=== PATIENT | male | born 1950 | race Caucasian/White ===

== ENCOUNTER 2019-04-16 05:23 | Inpatient (IN) ==
[2019-04-14 11:20] LABS: Basophils # 0.1 10*3/uL (0.0-0.2); Basophils % 1.1 % (0.0-0.8); Eosinophils # 0.3 10*3/uL (0.0-0.87); Eosinophils % 3.5 % (0.00-10.9); Hematocrit 46.7 VOL% (42.0-52.0); Immature Granulocytes % 0.5 %; Immature Granulocytes Absolute 0.04 #; Lymphocytes # 1.9 10*3/uL (1.4-4.0); Lymphocytes % 23.4 % (21.2-54.2); Mean Corpuscular HGB Conc 32.1 GM/DL (32-36); Mean Corpuscular Volume 88.1 FL (87-102); Mean Platelet Volume 11.2 FL (9.6-12.0); Monocytes % 8.3 % (1.7-12.7); Neutrophils % 63.2 % (38.7-73.9); Platelet Count 397 T/CUMM (130-400); Red Cell Distribution Width 14.3 % (9.3-17.3); White Blood Count 8.2 T/CUMM (4-12)
[2019-04-14 11:25] LABS: Apearance,Urine CLEAR (Clear); Bilirubin,Urine Negative (Negative); Blood, Urine Negative (Negative); Glucose,Urine (UA) >=500 mg/dL (Negative); Hyaline Casts,Urine 1 /LPF (0-3); Ketones,Urine Negative (Negative); Mucus,Urine Occasional /LPF (Occasional); Nitrite,Urine Negative (Negative); Protein,Urine Negative; RBC,Urine 1 /HPF (0-4); Squamous Epithelial Cell,Urine Occasional /HPF (0-10); Urine Color Yellow (Yellow); Urine Specific Gravity 1.023 (1.001-1.035); Urine Urobilinogen < 2.0 EU/DL (0.2-1.0); WBC,Urine 1 /HPF (0-6)
[2019-04-14 11:32] LABS: INR 0.9; Partial Thromboplastin Time 24.2 SECS (0-40)
[2019-04-14 11:36] LABS: Calcium 8.9 MG/DL (8.5-10.1); Osmolality,Calculated 285.3 MOS/KG (273-304)
[~2019-04-16 05:23] MED LIST: BUPIVACAINE LIPOSOMAL 20 ML/266 MG VIAL INFILTRAT ONE; CEFUROXIME INJ 1,500 MG in SYRINGE 1 EACH IV ONE; SODIUM CHLORIDE 0.9% 1,000 ML IV PRN
[2019-04-16] MEDS ORDERED: DEXMEDETOMIDINE 200 MCG/2 ML VIAL IV ONE ×2 (06:05→06:06)
[2019-04-16] MEDS ORDERED: PHENYLEPHRINE DRIP 20 MG/250 ML PREMIX IV ONE (06:05)
[2019-04-16] MEDS ORDERED: HEPARIN/NACL 0.9% 2 UNITS/ML 500 ML IV ONE (06:05)
[2019-04-16] MEDS ORDERED: SODIUM CHLORIDE 0.9% 100 ML IV ONE (06:06)
[2019-04-16] MEDS ORDERED: VECURONIUM 10 MG VIAL IV ONE (06:06)
[2019-04-16] MEDS ORDERED: SODIUM CHLORIDE 0.9% 1,000 ML IV ONE (06:06)
[2019-04-16] MEDS ORDERED: LACTATED RINGERS 1,000 ML IV ONE ×2 (06:06→14:45)
[2019-04-16] MEDS ORDERED: NITROGLYCERIN DRIP 50 MG/250 ML BOTTLE IV ONE (06:06)
[2019-04-16] MEDS ORDERED: CEFUROXIME 1,500 MG VIAL ONE ×2 (06:33→06:45)
[2019-04-16] MEDS ORDERED: TISSUE ADHESIVE 1 EACH APPLICATOR TOP ONE (06:40)
[2019-04-16] MEDS ORDERED: TALC INTRAPLEURAL POWDER 3 GM VIAL INTRAPLEUR ONE (06:40)
[2019-04-16] MEDS ORDERED: BUPIVACAINE LIPOSOMAL 20 ML/266 MG VIAL ONE (06:40)
[2019-04-16] MEDS ORDERED: HEPARIN 5,000 UNIT/1 ML VIAL ONE (06:40)
[2019-04-16] MEDS ORDERED: LACTATED RINGERS 1,000 ML IV SCH (07:00)
[2019-04-16 08:40] LABS: ABG Base Excess 0.9 MMOL/L (-2.5-2.5); ABG HCO3 25.3 MMOL/L (20-26); ABG PCO2 37.4 MM HG (35-48); ABG PH 7.432 (7.35-7.45); ABG TCO2 21.7 MMOL/L (23-27); Glucose Heart Surgery 171 MG/DL (74-106); Hematocrit Heart Surgery 40.5 PERCENT (42-52); Hemoglobin Heart Surgery 13.2 G/DL (14.0-18.0); Ionized Calcium Arterial 1.13 MMOL/L (1.21-1.46); PCO2 Patient Temp Arterial 35.7 MMHG; PH Patient Temp Arterial 7.447; Patient Temperature 36 CELCIUS; Potassium Heart/CVR 3.8 MMOL/L (3.5-5.1); Sodium Heart/CVR 140 MMOL/L (135-145)
[2019-04-16] MEDS ORDERED: ONDANSETRON 4 MG/2 ML VIAL ONE (13:11)
[2019-04-16] MEDS ORDERED: GLYCOPYRROLATE 0.4 MG/2 ML VIAL ONE ×2 (13:11→13:12)
[2019-04-16] MEDS ORDERED: MIDAZOLAM 2 MG/2 ML VIAL ONE (13:11)
[2019-04-16] MEDS ORDERED: SEVOFLURANE 1 UNIT/15 MINUTE INH ONE (13:11)
[2019-04-16] MEDS ORDERED: fentaNYL 100 MCG/2 ML VIAL ONE (13:11)
[2019-04-16] MEDS ORDERED: DEXAMETHASONE 4 MG/1 ML VIAL ONE ×2 (13:12)
[2019-04-16] MEDS ORDERED: NEOSTIGMINE 10 MG/10 ML VIAL ONE (13:12)
[2019-04-16 13:13] LABS: Apearance,Urine CLEAR (Clear); Bacteria,Urine Occasional /HPF (Few); Bilirubin,Urine Negative (Negative); Blood, Urine Negative (Negative); Glucose,Urine (UA) >=500 mg/dL (Negative); Hyaline Casts,Urine 1 /LPF (0-3); Ketones,Urine Negative (Negative); Mucus,Urine Occasional /LPF (Occasional); Nitrite,Urine Negative (Negative); Protein,Urine Negative; RBC,Urine 4 /HPF (0-4); Urine Color Yellow (Yellow); Urine Specific Gravity 1.023 (1.001-1.035); Urine Urobilinogen < 2.0 EU/DL (0.2-1.0); WBC,Urine 1 /HPF (0-6)
[2019-04-16] MEDS ORDERED: ONDANSETRON 4 MG/2 ML VIAL IV PRN (13:47)
[2019-04-16 14:15] LABS: Basophils # 0.1 10*3/uL (0.0-0.2); Basophils % 0.3 % (0.0-0.8); Hematocrit 41.1 VOL% (42.0-52.0); Hemoglobin 12.9 GM/DL (14.0-18.0); Immature Granulocytes % 0.8 %; Immature Granulocytes Absolute 0.21 #; Lymphocytes # 0.8 10*3/uL (1.4-4.0); Lymphocytes % 3.2 % (21.2-54.2); Mean Corpuscular HGB Conc 31.4 GM/DL (32-36); Mean Corpuscular Volume 88.6 FL (87-102); Mean Platelet Volume 10.7 FL (9.6-12.0); Monocytes % 5.7 % (1.7-12.7); Platelet Count 405 T/CUMM (130-400); Red Blood Count 4.64 MC/CUMM (3.8-5.5); Red Cell Distribution Width 13.9 % (9.3-17.3); White Blood Count 24.9 T/CUMM (4-12)
[2019-04-16] MEDS: KETOROLAC 15 MG/1 ML VIAL IV SCH ×2 (14:18→20:57)
[2019-04-16] MEDS: GABAPENTIN 100 MG CAPSULE PO SCH ×2 (14:18→21:11)
[2019-04-16 14:41] LABS: Lymphocytes 2 % (20-55); Segmented Neutrophils 92 % (50-85)
[2019-04-16 14:44] LABS: Platelet Estimate Increased; Total Cells Counted 100
[2019-04-16] MEDS: POTASSIUM CHLORIDE INJ 10 MEQ in SODIUM CHLORIDE 0.45% 1,000 ML IV SCH (14:54)
[2019-04-16] MEDS: ALBUTEROL/IPRATROPIUM 3 ML NEB RESP TX SCH ×2 (19:15→22:40)
[2019-04-16] MEDS: ACETAMINOPHEN INJ 1,000 MG in PREMIX 1 EACH IV SCH (19:58)
[2019-04-16] MEDS: CEFUROXIME INJ 1,500 MG in SYRINGE 1 EACH IV SCH (21:08)
[2019-04-16] MEDS: METOPROLOL SUCCINATE XL 50 MG TABLET PO SCH (21:11)
[2019-04-16] MEDS: traMADol 50 MG TABLET PO PRN (22:05)
[2019-04-17] MEDS: ACETAMINOPHEN INJ 1,000 MG in PREMIX 1 EACH IV SCH (01:25)
[2019-04-17] MEDS: KETOROLAC 15 MG/1 ML VIAL IV SCH ×4 (01:25→22:32)
[2019-04-17] MEDS: POTASSIUM CHLORIDE INJ 10 MEQ in SODIUM CHLORIDE 0.45% 1,000 ML IV SCH ×2 (01:29→10:31)
[2019-04-17] MEDS: ALBUTEROL/IPRATROPIUM 3 ML NEB RESP TX SCH ×6 (02:46→22:51)
[2019-04-17 04:58] LABS: Basophils % 0.2 % (0.0-0.8); Hematocrit 33.9 VOL% (42.0-52.0); Hemoglobin 10.7 GM/DL (14.0-18.0); Immature Granulocytes % 0.5 %; Immature Granulocytes Absolute 0.09 #; Lymphocytes # 1.6 10*3/uL (1.4-4.0); Lymphocytes % 9.7 % (21.2-54.2); Mean Corpuscular HGB Conc 31.6 GM/DL (32-36); Mean Corpuscular Volume 90.6 FL (87-102); Mean Platelet Volume 10.6 FL (9.6-12.0); Monocytes % 10.4 % (1.7-12.7); Neutrophils % 79.2 % (38.7-73.9); Platelet Count 304 T/CUMM (130-400); Red Blood Count 3.74 MC/CUMM (3.8-5.5); Red Cell Distribution Width 14.1 % (9.3-17.3); White Blood Count 16.4 T/CUMM (4-12)
[2019-04-17 05:10] LABS: Calcium 7.4 MG/DL (8.5-10.1); Osmolality,Calculated 288.3 MOS/KG (273-304)
[2019-04-17] MEDS ORDERED: traMADol 50 MG TABLET PO PRN (06:00)
[2019-04-17] MEDS: ENOXAPARIN 40 MG/0.4 ML SYRINGE SUBCUT SCH (08:02)
[2019-04-17] MEDS: GABAPENTIN 100 MG CAPSULE PO SCH ×3 (08:02→22:30)
[2019-04-17] MEDS: METOPROLOL SUCCINATE XL 50 MG TABLET PO SCH ×2 (08:03→22:30)
[2019-04-17] MEDS: ACETAMINOPHEN 500 MG TABLET PO SCH ×3 (08:03→22:30)
[2019-04-17] MEDS: PANTOPRAZOLE 40 MG TABLET PO SCH (08:11)
[2019-04-17] MEDS: CELECOXIB 200 MG CAPSULE PO SCH ×2 (08:11→22:30)
[2019-04-17] MEDS: CEFUROXIME INJ 1,500 MG in SYRINGE 1 EACH IV SCH (09:08)
[2019-04-17] MEDS ORDERED: DEXTROSE 50% 25 GM/50 ML VIAL IV PRN (10:58)
[2019-04-17] MEDS ORDERED: GLUCAGON 1 MG VIAL IM PRN (10:58)
[2019-04-17] MEDS: INSULIN LISPRO 100 UNIT/ML SUBCUT SCH ×3 (11:52→22:31)
[2019-04-17] MEDS: hydrALAZINE 25 MG TABLET PO SCH ×2 (13:02→17:18)
[2019-04-17] MEDS ORDERED: METOPROLOL SUCCINATE XL 50 MG TABLET PO SCH (21:00)
[2019-04-17] MEDS: metFORMIN 500 MG TABLET PO SCH (22:29)
[2019-04-17] MEDS: TEMAZEPAM 15 MG CAPSULE PO SCH (22:31)
[2019-04-18] MEDS: hydrALAZINE 25 MG TABLET PO SCH ×5 (01:12→21:33)
[2019-04-18] MEDS: amLODIPine 10 MG TABLET PO SCH ×3 (01:12→21:34)
[2019-04-18] MEDS: ACETAMINOPHEN 500 MG TABLET PO SCH ×4 (02:46→21:32)
[2019-04-18] MEDS: KETOROLAC 15 MG/1 ML VIAL IV SCH ×2 (02:46→08:41)
[2019-04-18] MEDS: ALBUTEROL/IPRATROPIUM 3 ML NEB RESP TX SCH ×6 (03:33→23:05)
[2019-04-18 04:41] LABS: Basophils # 0.1 10*3/uL (0.0-0.2); Basophils % 0.3 % (0.0-0.8); Eosinophils # 0.1 10*3/uL (0.0-0.87); Eosinophils % 0.5 % (0.00-10.9); Hematocrit 34.7 VOL% (42.0-52.0); Hemoglobin 10.9 GM/DL (14.0-18.0); Immature Granulocytes % 0.5 %; Immature Granulocytes Absolute 0.07 #; Lymphocytes # 2.1 10*3/uL (1.4-4.0); Lymphocytes % 13.8 % (21.2-54.2); Mean Corpuscular HGB Conc 31.4 GM/DL (32-36); Mean Corpuscular Volume 89.9 FL (87-102); Mean Platelet Volume 11.6 FL (9.6-12.0); Monocytes % 8.7 % (1.7-12.7); Neutrophils % 76.2 % (38.7-73.9); Platelet Count 307 T/CUMM (130-400); Red Blood Count 3.86 MC/CUMM (3.8-5.5); Red Cell Distribution Width 14.3 % (9.3-17.3); White Blood Count 14.9 T/CUMM (4-12)
[2019-04-18 05:05] LABS: Osmolality,Calculated 283.4 MOS/KG (273-304)
[2019-04-18] MEDS: INSULIN LISPRO 100 UNIT/ML SUBCUT SCH ×4 (07:54→22:50)
[2019-04-18] MEDS: ENOXAPARIN 40 MG/0.4 ML SYRINGE SUBCUT SCH (08:33)
[2019-04-18] MEDS: METOPROLOL SUCCINATE XL 50 MG TABLET PO SCH ×2 (08:34→21:32)
[2019-04-18] MEDS: GABAPENTIN 100 MG CAPSULE PO SCH ×3 (08:34→21:33)
[2019-04-18] MEDS: ASPIRIN 325 MG TABLET PO SCH (08:34)
[2019-04-18] MEDS: LOSARTAN 25 MG TABLET PO SCH (08:34)
[2019-04-18] MEDS: FENOFIBRATE 160 MG TABLET PO SCH (08:34)
[2019-04-18] MEDS: PANTOPRAZOLE 40 MG TABLET PO SCH (08:35)
[2019-04-18] MEDS: CELECOXIB 200 MG CAPSULE PO SCH ×2 (08:35→21:32)
[2019-04-18] MEDS: FLUTICASONE 50 MCG NASAL SPRAY 16 GM BOTTLE BOTH NARES SCH (08:35)
[2019-04-18] MEDS: ATORVASTATIN 20 MG TABLET PO SCH (08:35)
[2019-04-18] MEDS: MAGNESIUM OXIDE 400 MG TABLET PO SCH (08:36)
[2019-04-18] MEDS: hydroCHLOROthiazide 12.5 MG CAPSULE PO SCH (08:39)
[2019-04-18] MEDS ORDERED: NON-FORMULARY MEDICATION (Canagliflozin [Invokana] 300 MG) PO SCH (09:00)
[2019-04-18] MEDS ORDERED: NON-FORMULARY MEDICATION (Liraglutide [Victoza 3-Pak] 1.8 MG) SUBCUT SCH (09:00)
[2019-04-18] MEDS: metFORMIN 500 MG TABLET PO SCH (21:32)
[2019-04-18] MEDS: TEMAZEPAM 15 MG CAPSULE PO SCH (21:33)
[2019-04-18] MEDS: traMADol 50 MG TABLET PO PRN (21:34)
[2019-04-19] MEDS: ACETAMINOPHEN 500 MG TABLET PO SCH ×4 (01:10→20:29)
[2019-04-19] MEDS: ALBUTEROL/IPRATROPIUM 3 ML NEB RESP TX SCH ×6 (03:00→23:50)
[2019-04-19 03:48] LABS: Basophils # 0.1 10*3/uL (0.0-0.2); Basophils % 0.6 % (0.0-0.8); Eosinophils # 0.3 10*3/uL (0.0-0.87); Eosinophils % 2.7 % (0.00-10.9); Hematocrit 32.8 VOL% (42.0-52.0); Hemoglobin 10.3 GM/DL (14.0-18.0); Immature Granulocytes % 0.6 %; Immature Granulocytes Absolute 0.07 #; Lymphocytes # 1.6 10*3/uL (1.4-4.0); Lymphocytes % 13.4 % (21.2-54.2); Mean Corpuscular HGB Conc 31.4 GM/DL (32-36); Mean Corpuscular Volume 89.9 FL (87-102); Mean Platelet Volume 11.2 FL (9.6-12.0); Monocytes % 9.7 % (1.7-12.7); Platelet Count 278 T/CUMM (130-400); Red Blood Count 3.65 MC/CUMM (3.8-5.5); Red Cell Distribution Width 14.3 % (9.3-17.3); White Blood Count 11.9 T/CUMM (4-12)
[2019-04-19 04:13] LABS: Calcium 8.2 MG/DL (8.5-10.1); Osmolality,Calculated 284.3 MOS/KG (273-304)
[2019-04-19] MEDS: INSULIN LISPRO 100 UNIT/ML SUBCUT SCH ×4 (08:20→20:29)
[2019-04-19] MEDS: hydrALAZINE 25 MG TABLET PO SCH ×4 (08:43→20:29)
[2019-04-19] MEDS: ASPIRIN 325 MG TABLET PO SCH (08:43)
[2019-04-19] MEDS: ENOXAPARIN 40 MG/0.4 ML SYRINGE SUBCUT SCH (08:43)
[2019-04-19] MEDS: hydroCHLOROthiazide 12.5 MG CAPSULE PO SCH (08:44)
[2019-04-19] MEDS: METOPROLOL SUCCINATE XL 50 MG TABLET PO SCH ×2 (08:44→20:34)
[2019-04-19] MEDS: ATORVASTATIN 20 MG TABLET PO SCH (08:44)
[2019-04-19] MEDS: FLUTICASONE 50 MCG NASAL SPRAY 16 GM BOTTLE BOTH NARES SCH (08:44)
[2019-04-19] MEDS: amLODIPine 10 MG TABLET PO SCH ×2 (08:44→20:29)
[2019-04-19] MEDS: GABAPENTIN 100 MG CAPSULE PO SCH ×3 (08:44→20:29)
[2019-04-19] MEDS: MAGNESIUM OXIDE 400 MG TABLET PO SCH (08:44)
[2019-04-19] MEDS: PANTOPRAZOLE 40 MG TABLET PO SCH (08:44)
[2019-04-19] MEDS: FENOFIBRATE 160 MG TABLET PO SCH (08:44)
[2019-04-19] MEDS: CELECOXIB 200 MG CAPSULE PO SCH ×2 (08:44→20:30)
[2019-04-19] MEDS: LOSARTAN 25 MG TABLET PO SCH (08:44)
[2019-04-19] MEDS ORDERED: MORPHINE 4 MG/1 ML VIAL ONE (09:39)
[2019-04-19] MEDS ORDERED: MIDAZOLAM 2 MG/2 ML VIAL ONE (09:39)
[2019-04-19] MEDS ORDERED: MIDAZOLAM 10 MG/2 ML VIAL ONE (09:41)
[2019-04-19] MEDS ORDERED: MIDAZOLAM 2 MG/2 ML VIAL IV ONE (09:53)
[2019-04-19] MEDS ORDERED: MORPHINE 4 MG/1 ML VIAL IV ONE (09:54)
[2019-04-19] MEDS ORDERED: LIDOCAINE 4% TOP SOLN 50 ML BOTTLE RESP TX ONE (10:21)
[2019-04-19] MEDS ORDERED: LIDOCAINE 2% VISCOUS 100 ML BOTTLE SWISH/SPIT ONE (11:43)
[2019-04-19] MEDS ORDERED: GLUCAGON 1 MG VIAL IM PRN (15:27)
[2019-04-19] MEDS ORDERED: DEXTROSE 50% 25 GM/50 ML VIAL IV PRN (15:27)
[2019-04-19] MEDS: metFORMIN 500 MG TABLET PO SCH (20:29)
[2019-04-19] MEDS: TEMAZEPAM 15 MG CAPSULE PO SCH (20:34)
[2019-04-19] MEDS ORDERED: METOPROLOL TARTRATE 5 MG/5 ML VIAL IV ONE (21:43)
[2019-04-20] MEDS: ACETAMINOPHEN 500 MG TABLET PO SCH ×4 (02:08→20:16)
[2019-04-20] MEDS: ALBUTEROL/IPRATROPIUM 3 ML NEB RESP TX SCH ×6 (03:50→23:19)
[2019-04-20 04:42] LABS: Basophils # 0.1 10*3/uL (0.0-0.2); Basophils % 0.5 % (0.0-0.8); Eosinophils # 0.6 10*3/uL (0.0-0.87); Eosinophils % 5.2 % (0.00-10.9); Hematocrit 32.2 VOL% (42.0-52.0); Hemoglobin 10.4 GM/DL (14.0-18.0); Immature Granulocytes % 0.3 %; Immature Granulocytes Absolute 0.04 #; Lymphocytes # 1.3 10*3/uL (1.4-4.0); Lymphocytes % 11.2 % (21.2-54.2); Mean Corpuscular HGB Conc 32.3 GM/DL (32-36); Mean Corpuscular Volume 89.4 FL (87-102); Mean Platelet Volume 11.5 FL (9.6-12.0); Neutrophils % 75.8 % (38.7-73.9); Platelet Count 321 T/CUMM (130-400); Red Cell Distribution Width 14.1 % (9.3-17.3); White Blood Count 11.8 T/CUMM (4-12)
[2019-04-20 05:02] LABS: Calcium 8.2 MG/DL (8.5-10.1); Osmolality,Calculated 281.4 MOS/KG (273-304)
[2019-04-20] MEDS: ENOXAPARIN 40 MG/0.4 ML SYRINGE SUBCUT SCH (09:20)
[2019-04-20] MEDS: hydrALAZINE 25 MG TABLET PO SCH ×4 (09:21→21:23)
[2019-04-20] MEDS: ASPIRIN 325 MG TABLET PO SCH (09:21)
[2019-04-20] MEDS: hydroCHLOROthiazide 12.5 MG CAPSULE PO SCH (09:21)
[2019-04-20] MEDS: MAGNESIUM OXIDE 400 MG TABLET PO SCH (09:21)
[2019-04-20] MEDS: CELECOXIB 200 MG CAPSULE PO SCH ×2 (09:21→21:22)
[2019-04-20] MEDS: ATORVASTATIN 20 MG TABLET PO SCH (09:22)
[2019-04-20] MEDS: FENOFIBRATE 160 MG TABLET PO SCH (09:22)
[2019-04-20] MEDS: amLODIPine 10 MG TABLET PO SCH ×2 (09:22→21:22)
[2019-04-20] MEDS: GABAPENTIN 100 MG CAPSULE PO SCH ×3 (09:23→21:21)
[2019-04-20] MEDS: LOSARTAN 25 MG TABLET PO SCH (09:23)
[2019-04-20] MEDS: PANTOPRAZOLE 40 MG TABLET PO SCH (09:23)
[2019-04-20] MEDS: INSULIN LISPRO 100 UNIT/ML SUBCUT SCH ×4 (09:24→21:21)
[2019-04-20] MEDS: METOPROLOL SUCCINATE XL 50 MG TABLET PO SCH ×2 (09:24→21:22)
[2019-04-20] MEDS: FLUTICASONE 50 MCG NASAL SPRAY 16 GM BOTTLE BOTH NARES SCH (13:12)
[2019-04-20] MEDS: metFORMIN 500 MG TABLET PO SCH (21:22)
[2019-04-20] MEDS: TEMAZEPAM 15 MG CAPSULE PO SCH (21:30)
[2019-04-21] MEDS ORDERED: METOPROLOL TARTRATE 5 MG/5 ML VIAL IV ONE (00:44)
[2019-04-21] MEDS: ACETAMINOPHEN 500 MG TABLET PO SCH ×4 (01:57→21:25)
[2019-04-21] MEDS: ALBUTEROL/IPRATROPIUM 3 ML NEB RESP TX SCH ×6 (03:08→23:06)
[2019-04-21 05:11] LABS: Basophils # 0.1 10*3/uL (0.0-0.2); Basophils % 0.5 % (0.0-0.8); Eosinophils # 0.8 10*3/uL (0.0-0.87); Eosinophils % 7.1 % (0.00-10.9); Hematocrit 32.4 VOL% (42.0-52.0); Hemoglobin 10.3 GM/DL (14.0-18.0); Immature Granulocytes % 0.7 %; Immature Granulocytes Absolute 0.08 #; Lymphocytes # 1.6 10*3/uL (1.4-4.0); Lymphocytes % 13.5 % (21.2-54.2); Mean Corpuscular HGB Conc 31.8 GM/DL (32-36); Mean Corpuscular Volume 88.3 FL (87-102); Mean Platelet Volume 11.6 FL (9.6-12.0); Monocytes % 8.1 % (1.7-12.7); Neutrophils % 70.1 % (38.7-73.9); Platelet Count 383 T/CUMM (130-400); Red Blood Count 3.67 MC/CUMM (3.8-5.5); Red Cell Distribution Width 13.9 % (9.3-17.3); White Blood Count 11.7 T/CUMM (4-12)
[2019-04-21 05:51] LABS: Calcium 8.6 MG/DL (8.5-10.1)
[2019-04-21] MEDS: INSULIN LISPRO 100 UNIT/ML SUBCUT SCH ×4 (08:40→21:24)
[2019-04-21] MEDS: amLODIPine 10 MG TABLET PO SCH ×2 (09:33→21:29)
[2019-04-21] MEDS: ENOXAPARIN 40 MG/0.4 ML SYRINGE SUBCUT SCH (09:33)
[2019-04-21] MEDS: ASPIRIN 325 MG TABLET PO SCH (09:34)
[2019-04-21] MEDS: CELECOXIB 200 MG CAPSULE PO SCH ×2 (09:34→21:26)
[2019-04-21] MEDS: METOPROLOL SUCCINATE XL 50 MG TABLET PO SCH ×2 (09:34→21:29)
[2019-04-21] MEDS: LOSARTAN 25 MG TABLET PO SCH (09:34)
[2019-04-21] MEDS: GABAPENTIN 100 MG CAPSULE PO SCH ×3 (09:35→21:29)
[2019-04-21] MEDS: hydrALAZINE 25 MG TABLET PO SCH ×4 (09:35→21:28)
[2019-04-21] MEDS: hydroCHLOROthiazide 12.5 MG CAPSULE PO SCH (09:35)
[2019-04-21] MEDS: MAGNESIUM OXIDE 400 MG TABLET PO SCH (09:35)
[2019-04-21] MEDS: ATORVASTATIN 20 MG TABLET PO SCH (09:35)
[2019-04-21] MEDS: PANTOPRAZOLE 40 MG TABLET PO SCH (09:35)
[2019-04-21] MEDS: FENOFIBRATE 160 MG TABLET PO SCH (09:35)
[2019-04-21] MEDS: FLUTICASONE 50 MCG NASAL SPRAY 16 GM BOTTLE BOTH NARES SCH (09:36)
[2019-04-21] MEDS ORDERED: FUROSEMIDE 40 MG/4 ML VIAL IV ONE (09:37)
[2019-04-21] MEDS ORDERED: LACTULOSE 20 GM/30 ML UDCUP PO PRN (10:14)
[2019-04-21] MEDS: DOCUSATE SODIUM 100 MG CAPSULE PO SCH ×2 (10:41→12:22)
[2019-04-21] MEDS ORDERED: AMIODARONE 150 MG/3 ML VIAL ONE (12:37)
[2019-04-21] MEDS ORDERED: AMIODARONE 450 MG/9 ML VIAL IV ONE (12:37)
[2019-04-21] MEDS ORDERED: AMIODARONE INJ 150 MG in DEXTROSE 5% 100 ML IV ONE (13:00)
[2019-04-21] MEDS ORDERED: AMIODARONE INJ 450 MG in DEXTROSE 5% 241 ML IV SCH (13:10)
[2019-04-21] MEDS: metFORMIN 500 MG TABLET PO SCH (21:25)
[2019-04-21] MEDS: TEMAZEPAM 15 MG CAPSULE PO SCH (21:26)
[2019-04-21] MEDS: AMIODARONE INJ 450 MG in DEXTROSE 5% 241 ML IV SCH (21:27)
[2019-04-22] MEDS: ACETAMINOPHEN 500 MG TABLET PO SCH ×4 (00:48→20:55)
[2019-04-22] MEDS: ALBUTEROL/IPRATROPIUM 3 ML NEB RESP TX SCH ×6 (02:00→23:09)
[2019-04-22 04:51] LABS: Basophils # 0.1 10*3/uL (0.0-0.2); Basophils % 0.9 % (0.0-0.8); Eosinophils # 0.9 10*3/uL (0.0-0.87); Eosinophils % 7.5 % (0.00-10.9); Hematocrit 31.7 VOL% (42.0-52.0); Hemoglobin 10.2 GM/DL (14.0-18.0); Immature Granulocytes % 1.5 %; Immature Granulocytes Absolute 0.17 #; Lymphocytes # 2.1 10*3/uL (1.4-4.0); Lymphocytes % 18.5 % (21.2-54.2); Mean Corpuscular HGB Conc 32.2 GM/DL (32-36); Mean Corpuscular Volume 88.3 FL (87-102); Mean Platelet Volume 11.4 FL (9.6-12.0); Neutrophils % 62.6 % (38.7-73.9); Platelet Count 428 T/CUMM (130-400); Red Blood Count 3.59 MC/CUMM (3.8-5.5); White Blood Count 11.4 T/CUMM (4-12)
[2019-04-22 05:22] LABS: Calcium 8.6 MG/DL (8.5-10.1); Osmolality,Calculated 285.3 MOS/KG (273-304)
[2019-04-22] MEDS: INSULIN LISPRO 100 UNIT/ML SUBCUT SCH ×4 (09:07→20:56)
[2019-04-22] MEDS: LOSARTAN 25 MG TABLET PO SCH (09:09)
[2019-04-22] MEDS: MAGNESIUM OXIDE 400 MG TABLET PO SCH (09:09)
[2019-04-22] MEDS: GABAPENTIN 100 MG CAPSULE PO SCH ×3 (09:09→20:55)
[2019-04-22] MEDS: FENOFIBRATE 160 MG TABLET PO SCH (09:09)
[2019-04-22] MEDS: CELECOXIB 200 MG CAPSULE PO SCH ×2 (09:09→20:54)
[2019-04-22] MEDS: ATORVASTATIN 20 MG TABLET PO SCH (09:09)
[2019-04-22] MEDS: METOPROLOL SUCCINATE XL 50 MG TABLET PO SCH ×2 (09:09→20:56)
[2019-04-22] MEDS: PANTOPRAZOLE 40 MG TABLET PO SCH (09:09)
[2019-04-22] MEDS: DOCUSATE SODIUM 100 MG CAPSULE PO SCH (09:09)
[2019-04-22] MEDS: ASPIRIN 325 MG TABLET PO SCH (09:09)
[2019-04-22] MEDS: hydrALAZINE 25 MG TABLET PO SCH ×4 (09:09→20:55)
[2019-04-22] MEDS: hydroCHLOROthiazide 12.5 MG CAPSULE PO SCH (09:09)
[2019-04-22] MEDS: amLODIPine 10 MG TABLET PO SCH ×2 (09:10→20:55)
[2019-04-22] MEDS: ENOXAPARIN 40 MG/0.4 ML SYRINGE SUBCUT SCH (09:10)
[2019-04-22] MEDS: FLUTICASONE 50 MCG NASAL SPRAY 16 GM BOTTLE BOTH NARES SCH (09:13)
[2019-04-22] MEDS: AMIODARONE INJ 450 MG in DEXTROSE 5% 241 ML IV SCH (10:49)
[2019-04-22] MEDS: AMIODARONE 200 MG TABLET PO SCH ×2 (12:27→20:55)
[2019-04-22] MEDS: metFORMIN 500 MG TABLET PO SCH (20:55)
[2019-04-22] MEDS: TEMAZEPAM 15 MG CAPSULE PO SCH (20:55)
[2019-04-23] MEDS: AMIODARONE INJ 450 MG in DEXTROSE 5% 241 ML IV SCH (01:44)
[2019-04-23] MEDS: ACETAMINOPHEN 500 MG TABLET PO SCH ×2 (01:48→10:18)
[2019-04-23] MEDS: ALBUTEROL/IPRATROPIUM 3 ML NEB RESP TX SCH ×2 (02:33→07:10)
[2019-04-23 05:23] LABS: Basophils # 0.1 10*3/uL (0.0-0.2); Basophils % 0.8 % (0.0-0.8); Eosinophils # 0.9 10*3/uL (0.0-0.87); Eosinophils % 6.8 % (0.00-10.9); Hematocrit 31.7 VOL% (42.0-52.0); Hemoglobin 10.1 GM/DL (14.0-18.0); Immature Granulocytes % 1.6 %; Immature Granulocytes Absolute 0.21 #; Lymphocytes # 1.9 10*3/uL (1.4-4.0); Lymphocytes % 14.3 % (21.2-54.2); Mean Corpuscular HGB Conc 31.9 GM/DL (32-36); Mean Corpuscular Volume 88.3 FL (87-102); Mean Platelet Volume 11.3 FL (9.6-12.0); Monocytes % 8.5 % (1.7-12.7); Platelet Count 490 T/CUMM (130-400); Red Blood Count 3.59 MC/CUMM (3.8-5.5)
[2019-04-23 05:44] LABS: Calcium 8.8 MG/DL (8.5-10.1); Osmolality,Calculated 287.1 MOS/KG (273-304)
[2019-04-23] MEDS: INSULIN LISPRO 100 UNIT/ML SUBCUT SCH (10:14)
[2019-04-23] MEDS: hydroCHLOROthiazide 12.5 MG CAPSULE PO SCH (10:17)
[2019-04-23] MEDS: FENOFIBRATE 160 MG TABLET PO SCH (10:18)
[2019-04-23] MEDS: ASPIRIN 325 MG TABLET PO SCH (10:18)
[2019-04-23] MEDS: amLODIPine 10 MG TABLET PO SCH (10:18)
[2019-04-23] MEDS: PANTOPRAZOLE 40 MG TABLET PO SCH (10:18)
[2019-04-23] MEDS: GABAPENTIN 100 MG CAPSULE PO SCH (10:18)
[2019-04-23] MEDS: hydrALAZINE 25 MG TABLET PO SCH (10:18)
[2019-04-23] MEDS: DOCUSATE SODIUM 100 MG CAPSULE PO SCH (10:18)
[2019-04-23] MEDS: ATORVASTATIN 20 MG TABLET PO SCH (10:18)
[2019-04-23] MEDS: LOSARTAN 25 MG TABLET PO SCH (10:18)
[2019-04-23] MEDS: MAGNESIUM OXIDE 400 MG TABLET PO SCH (10:19)
[2019-04-23] MEDS: ENOXAPARIN 40 MG/0.4 ML SYRINGE SUBCUT SCH (10:19)
[2019-04-23] MEDS: AMIODARONE 200 MG TABLET PO SCH (10:19)
[2019-04-23] MEDS: METOPROLOL SUCCINATE XL 50 MG TABLET PO SCH (10:19)
[2019-04-23] MEDS: CELECOXIB 200 MG CAPSULE PO SCH (10:23)
[2019-04-23] MEDS: FLUTICASONE 50 MCG NASAL SPRAY 16 GM BOTTLE BOTH NARES SCH (10:23)
[2019-04-23 12:05] VITALS: BP 114/58
== END 2019-04-23 12:15 | disposition home health service (06) | DRG 164 ==
LOC: N.OR 05:23 → N.SDSINP 05:24 → N.ICU 07:35 → EDSTATUS 08:00 → N.ICU 13:47 → N.TELES 04-17 14:53 → N.ICU 04-19 09:49 → N.TELES 04-19 12:06
PROVIDERS: ADMIT Thoracic Surgery (Cardiothoracic Vascular Surgery); ATTEND Thoracic Surgery (Cardiothoracic Vascular Surgery)